=== PATIENT | male | born 1955 | race Caucasian/White ===

== ENCOUNTER 2017-12-05 13:01 | Outpatient (CLI) | payer OTHER ==
--- NOTE | 2017-12-09 11:33 | Diagnostic Imaging Report ---
Indication: Shoulder pain Technique: MRI of the right shoulder obtained in a 1.5 Radha magnet. Pulse sequences obtained include axial and coronal proton fast spin-echo with fat saturation, sagittal T1 fast spin-echo, sagittal and coronal T2 fast spin-echo with fat saturation. Findings: There is a 6 mm curvilinear focus of T2 hyperintense signal along the undersurface of the supraspinatus tendon at its footprint on the greater tuberosity. Findings consistent with a small supraspinatus tendon tear, probably partial thickness undersurface. There is no retraction of the tendon. The rotator cuff tendon appears slightly intermediate in signal intensity on all pulse sequences in all 3 planes indicative of mild tendinopathy. There is a subacromial fluid present collecting anteriorly. The long head of the biceps tendon is demonstrated within the bicipital groove. No joint effusion seen. No gross abnormalities of the glenoid labrum identified. Bone marrow signal is normal. Type II acromion noted. There is hypertrophy of the acromioclavicular joint indicative of mild arthropathy. IMPRESSION: Suspected 6 mm undersurface tear at the footprint of the supraspinatus tendon. Small amount of subacromial fluid. Mild arthrosis acromioclavicular joint
== END 2017-12-05 15:01 | disposition home or self-care (01) ==
LOC: MRI 13:01
DX: M19.011 Primary osteoarthritis, right shoulder (principal)